=== PATIENT | male | born 1965 | race Caucasian/White ===

== ENCOUNTER 2022-07-26 18:53 | Emergency (ER) | payer MEDICAID ==
[~2022-07-26] VITALS: Ht 165.1 cm; Wt 74.0 kg
--- NOTE | ~2022-07-26 | EKG ---
[facility] [address] [facility] [place], [place] [address] Draft EKG completed, results pending confirmation PATIENT NAME: NANCY GRANADOS Electrocardiogram DATE OF : 69 PHYSICIAN: PRELIMINARY REPORT #: [id number] REPORT IS CONFIDENTIAL AND NOT TO BE RELEASED WITHOUT AUTHORIZATION
[2022-07-26] MEDS ORDERED: METFORMIN HCL1000 M1 PO (22:31)
== END 2022-07-26 23:11 | disposition home or self-care (01) ==
LOC: ED 18:53
DX: E86.0 Dehydration (principal); E11.65 Type 2 diabetes mellitus with hyperglycemia; R10.13 Epigastric pain; Z20.822 Contact with and (suspected) exposure to COVID-19; Z79.84 Long term (current) use of oral hypoglycemic drugs
CPT/HCPCS: 36415; 51798; 71045; 74177; 80053; 81003; 83036; 83690; 84484; 85025; 87502; 93005; 93010; 99285-25; A9270; G0480; J1170; J2270; J7121; Q9967; U0003